=== PATIENT | female | born 1990 | race Caucasian/White ===

== ENCOUNTER 2020-09-18 18:29 | Inpatient (IN) | payer MEDICAID ==
[~2020-09-18] VITALS: Ht 167.6 cm; Wt 75.3 kg
[2020-09-18 19:11] LABS: Urine Bacteria MANY /hpf (None Seen); Urine Blood 2+ /uL (Negative); Urine Mucus FEW (None Seen); Urine Specific Gravity 1.014 (1.001-1.035); Urine WBC 60 /hpf (0 - 5)
[2020-09-18] MEDS ORDERED: SODIUM CHLORIDE 0.9% 1,000 ML IV ONE (19:15)
[2020-09-18] MEDS ORDERED: ACETAMINOPHEN 500 MG TAB PO ONE (19:15)
[2020-09-18] MEDS ORDERED: MORPHINE SULF INJ 2 MG/ML SYRINGE 1ML IV ONE ×2 (19:30→23:15)
[2020-09-18] MEDS ORDERED: ONDANSETRON HCL 4 MG/2 ML VIAL IV ONE (19:30)
[2020-09-18] MEDS ORDERED: SODIUM CHLORIDE 0.9% 1,000 ML IVB ONE (19:30)
[2020-09-18 19:46] LABS: Basophils # (auto) 0 10 ^3/uL (0-0.2); Basophils % (auto) 0.2 % (0.0-2.0); Eosinophils # (auto) 0 10 ^3/uL (0-0.8); Lymphocytes # (auto) 1.2 10 ^3/uL (0.4-5.4); Lymphocytes % (auto) 6.7 % (10.0-50.0); Mean Corpuscular Hemoglobin 31.3 pg (28.0-32.0); Mean Corpuscular Hgb Conc. 34.9 g/dL (32.0-36.0); Mean Corpuscular Volume 89.9 fL (80.0-100.0); Monocytes # (auto) 1.9 10 ^3/uL (0-1.3); Monocytes % (auto) 10.5 % (0.0-12.0); Neutrophils # (auto) 14.9 10 ^3/uL (1.6-8.6); Neutrophils % (auto) 82.6 % (37.0-80.0); Nucleated Red Blood Cells % 0.1 %; Platelet Count (auto) 320 10^3/uL (140-450); Red Blood Cells 4.78 10^6/uL (4.0-5.20); Red Cell Distribution Width 12.8 % (11.8-14.3); White Blood Cell 18.1 10^3/uL (4.4-10.8)
[2020-09-18 20:06] LABS: Albumin 4.2 g/dL (3.4-5.0); Calcium 8.7 mg/dL (8.5-10.1); Potassium 3.5 mmol/L (3.5-5.1)
[2020-09-18 20:10] LABS: BUN/Creatinine Ratio 11.8; Bilirubin, Total 1.6 mg/dL (0.2-1.0); Total Protein 8.5 g/dL (6.4-8.2)
[2020-09-18] MEDS ORDERED: cefTRIAXone 1GM/50ML D5W 50 ML IV ONE (20:30)
[2020-09-18 20:58] LABS: INR 1.04 (0.9-1.15)
[2020-09-18] MEDS: MAGNESIUM SULFATE 1GM/100ML 100 ML IV SCH ×2 (21:59→22:42)
[2020-09-19] MEDS ORDERED: D5W/SOD CHLO 0.9% 1,000 ML IV SCH (04:30)
[2020-09-19] MEDS ORDERED: MORPHINE SULF INJ 2 MG/ML SYRINGE 1ML IV PRN (04:30)
[2020-09-19] MEDS ORDERED: NITROGLYCERIN 0.4 MG SL TAB SL PRN (04:30)
[2020-09-19] MEDS ORDERED: ACETAMINOPHEN 325 MG TAB PO PRN (04:30)
[2020-09-19] MEDS: HYDROcodone-ACET 5/325MG TAB PO PRN ×4 (05:42→21:15)
[2020-09-19] MEDS: metroNIDAZOLE 500MG/100ML 100 ML IV SCH ×3 (05:45→22:53)
[2020-09-19 05:58] VITALS: BP 122/74
[2020-09-19] MEDS ORDERED: IBUP200C3 PO (06:18)
[2020-09-19] MEDS ORDERED: ACET-1156 PO (06:18)
[2020-09-19 08:29] LABS: Basophils # (auto) 0.1 10 ^3/uL (0-0.2); Basophils % (auto) 0.6 % (0.0-2.0); Eosinophils # (auto) 0 10 ^3/uL (0-0.8); Hematocrit 39.6 % (36.0-46.0); Hemoglobin 13.6 g/dL (12.2-16.2); Lymphocytes # (auto) 1.3 10 ^3/uL (0.4-5.4); Lymphocytes % (auto) 7.7 % (10.0-50.0); Mean Corpuscular Hemoglobin 31.1 pg (28.0-32.0); Mean Corpuscular Hgb Conc. 34.2 g/dL (32.0-36.0); Mean Corpuscular Volume 90.9 fL (80.0-100.0); Monocytes # (auto) 1.9 10 ^3/uL (0-1.3); Monocytes % (auto) 10.8 % (0.0-12.0); Neutrophils % (auto) 80.9 % (37.0-80.0); Nucleated Red Blood Cells % 0.1 %; Platelet Count (auto) 277 10^3/uL (140-450); Red Blood Cells 4.36 10^6/uL (4.0-5.20); Red Cell Distribution Width 12.5 % (11.8-14.3); White Blood Cell 17.3 10^3/uL (4.4-10.8)
[2020-09-19 08:54] LABS: Albumin 3.5 g/dL (3.4-5.0); Calcium 8.2 mg/dL (8.5-10.1); Magnesium 2.7 mg/dL (1.6-2.6); Potassium 3.5 mmol/L (3.5-5.1)
[2020-09-19 08:56] LABS: Total Protein 7.3 g/dL (6.4-8.2)
[2020-09-19 09:00] VITALS: BP 113/61
[2020-09-19] MEDS: ENOXAPARIN SOD 40 MG/0.4 ML SYRINGE SC SCH (09:11)
[2020-09-19] MEDS: cefTRIAXone 1GM/50ML D5W 50 ML IV SCH (09:12)
[2020-09-19 13:00] VITALS: BP 120/65
[2020-09-19] MEDS: SODIUM CHLORIDE 0.9% 1,000 ML IV SCH (16:17)
[2020-09-19 16:32] VITALS: BP 122/73
[2020-09-19] MEDS ORDERED: GENTAMICIN PER PHARMACY 0 ML IV SCH (17:45)
[2020-09-19] MEDS: GENTAMICIN SULFATE 360 MG in D5W 5% 100 ML IV SCH (21:10)
[2020-09-19 22:00] VITALS: BP 121/65
[2020-09-20 05:00] VITALS: BP 124/68
[2020-09-20] MEDS: metroNIDAZOLE 500MG/100ML 100 ML IV SCH ×3 (05:31→22:05)
[2020-09-20] MEDS: ONDANSETRON HCL 4 MG/2 ML VIAL IV PRN ×2 (06:42→14:29)
[2020-09-20 07:23] LABS: Albumin 3.4 g/dL (3.4-5.0); BUN/Creatinine Ratio 9.6; Calcium 8.3 mg/dL (8.5-10.1); Potassium 3.6 mmol/L (3.5-5.1)
[2020-09-20 07:24] LABS: Basophils # (auto) 0 10 ^3/uL (0-0.2); Basophils % (auto) 0.1 % (0.0-2.0); Eosinophils # (auto) 0.1 10 ^3/uL (0-0.8); Eosinophils % (auto) 0.4 % (0.0-7.0); Hematocrit 39.6 % (36.0-46.0); Hemoglobin 13.5 g/dL (12.2-16.2); Lymphocytes # (auto) 1.2 10 ^3/uL (0.4-5.4); Lymphocytes % (auto) 9.1 % (10.0-50.0); Mean Corpuscular Hemoglobin 31.2 pg (28.0-32.0); Mean Corpuscular Volume 91.9 fL (80.0-100.0); Monocytes # (auto) 1.3 10 ^3/uL (0-1.3); Monocytes % (auto) 10.5 % (0.0-12.0); Neutrophils # (auto) 10.2 10 ^3/uL (1.6-8.6); Neutrophils % (auto) 79.9 % (37.0-80.0); Nucleated Red Blood Cells % 0.1 %; Platelet Count (auto) 271 10^3/uL (140-450); Red Blood Cells 4.31 10^6/uL (4.0-5.20); Red Cell Distribution Width 12.3 % (11.8-14.3); White Blood Cell 12.8 10^3/uL (4.4-10.8)
[2020-09-20 07:25] LABS: Bilirubin, Total 0.6 mg/dL (0.2-1.0); Total Protein 7.3 g/dL (6.4-8.2)
[2020-09-20 08:00] VITALS: BP 115/69
[2020-09-20] MEDS: SODIUM CHLORIDE 0.9% 1,000 ML IV SCH ×4 (08:00→23:22)
[2020-09-20 09:00] VITALS: BP 115/69
[2020-09-20] MEDS: cefTRIAXone 1GM/50ML D5W 50 ML IV SCH (09:24)
[2020-09-20] MEDS: ENOXAPARIN SOD 40 MG/0.4 ML SYRINGE SC SCH (09:25)
[2020-09-20 13:00] VITALS: BP 117/56
[2020-09-20 17:00] VITALS: BP 104/67
[2020-09-20] MEDS: GENTAMICIN SULFATE 360 MG in D5W 5% 100 ML IV SCH (19:35)
[2020-09-20 21:52] VITALS: BP 127/70
[2020-09-21 05:01] VITALS: BP 101/61
[2020-09-21] MEDS: metroNIDAZOLE 500MG/100ML 100 ML IV SCH ×2 (05:51→14:10)
[2020-09-21 08:00] VITALS: BP 113/66
[2020-09-21] MEDS: SODIUM CHLORIDE 0.9% 1,000 ML IV SCH ×2 (08:00→16:00)
[2020-09-21 09:09] VITALS: BP 113/66
[2020-09-21] MEDS: cefTRIAXone 1GM/50ML D5W 50 ML IV SCH (10:30)
[2020-09-21] MEDS: ENOXAPARIN SOD 40 MG/0.4 ML SYRINGE SC SCH (10:30)
[2020-09-21] MEDS ORDERED: IBUP600T27 PO (12:21)
[2020-09-21] MEDS ORDERED: CIPR-173 PO (12:21)
[2020-09-21 13:21] VITALS: BP 112/64
[2020-09-21 14:33] VITALS: BP 112/64
== END 2020-09-21 16:33 | disposition home or self-care (01) | DRG 463 ==
LOC: ER 18:29 → TELE 09-19 04:21 → TELE-CENTR 09-19 05:26
PROVIDERS: ADMIT Nurse Practitioner Family; ATTEND Hospitalist
DX: N12 Tubulo-interstitial nephritis, not specified as acute or chronic (principal); E83.42 Hypomagnesemia; Z20.822 Contact with and (suspected) exposure to COVID-19; Z82.49 Family history of ischemic heart disease and other diseases of the circulatory system; Z83.3 Family history of diabetes mellitus; R11.2 Nausea with vomiting, unspecified
CPT/HCPCS: 36415; 74176; 80053; 80170; 81001; 81025; 83605; 83735; 85025; 85610; 85730; 87040; 87086; 87426; 96361; 96365; 96366; 96367; 96375; 96376; G0378; J0696; J2405; J3490; J7060